=== PATIENT | female | born 1965 | race Caucasian/White ===

== ENCOUNTER 2020-03-17 06:44 | Outpatient (REF) | payer BC, SELFPAY ==
[2020-03-17 12:02] LABS: Alanine Aminotransferase 12 U/L (0-31); Albumin Level 4.3 g/dL (3.5-5.0); Alkaline Phosphatase 62 U/L (39-117); Anion Gap 14 (12-20); Aspartate Amino Transferase 18 U/L (5-31); Bilirubin Total 0.8 mg/dL (0.0-1.0); Blood Urea Nitrogen 8 mg/dL (9-16); Calcium 8.9 mg/dL (8.4-10.2); Carbon Dioxide 26 mmol/L (22-29); Chloride 104 mmol/L (96-108); Cholesterol 242 mg/dL; Estimated Glomerular Filt Rate 59; Glucose Fasting 81 mg/dL (60-99); HDL Cholesterol 62 mg/dL; LDL Cholesterol Calculated 157 mg/dl; Potassium 4.3 mmol/l (3.3-5.1); Sodium 140 mmol/L (135-145); Triglycerides 119 mg/dL
[2020-03-17 12:12] LABS: TSH reflex Free T4 1.94 mIU/mL (0.32-4.0); Vitamin D 25-OH Total 27.6 ng/mL (>30)
== END 2020-03-17 06:45 | disposition home or self-care (01) ==
LOC: HO.HMGCLDS 06:44
PROVIDERS: PCP Nurse Practitioner Family; Visit Provider Nurse Practitioner Family
DX: E78.5 Hyperlipidemia, unspecified (principal); Z13.29 Encounter for screening for other suspected endocrine disorder; Z78.0 Asymptomatic menopausal state
CPT/HCPCS: 80053; 80061; 82306; 84443

== ENCOUNTER 2020-07-25 06:28 | Outpatient (REF) | payer BC, SELFPAY ==
[2020-07-25 11:55] LABS: Cholesterol 178 mg/dL; HDL Cholesterol 63 mg/dL; LDL Cholesterol Calculated 100 mg/dl; Triglycerides 77 mg/dL
== END 2020-07-25 06:29 | disposition home or self-care (01) ==
LOC: HO.HMGCLDS 06:28
PROVIDERS: PCP Nurse Practitioner Family; Visit Provider Nurse Practitioner Family
DX: E78.5 Hyperlipidemia, unspecified (principal)
CPT/HCPCS: 36415; 80061

== ENCOUNTER 2020-09-27 08:36 | Outpatient (REF) | payer BC, SELFPAY ==
--- NOTE | ~2020-09-27 | US_ITS ---
EXAMINATION: US ABDOMEN COMPLETE CLINICAL INFORMATION: Right upper quadrant pain. COMPARISON: Ultrasound bladder 05/28/2017. Ultrasound abdomen 01/30/2012. TECHNIQUE: Real-time imaging of the abdominal viscera. FINDINGS: PANCREAS: Normal. ABDOMINAL AORTA: The proximal, mid, and distal segments are normal in caliber. INFERIOR VENA CAVA: Visualized portions are normal. LIVER: Normal. The liver is normal in size. The liver contour is normal. The liver echotexture is normal. No focal hepatic lesion. There is no intrahepatic biliary duct dilatation seen. GALLBLADDER: Normal. The gallbladder is physiologically distended without evidence of stones, sludge, polyps, wall thickening or pericholecystic fluid. COMMON BILE DUCT: Normal in caliber measuring 0.35 cm in diameter. RIGHT KIDNEY: Normal. No hydronephrosis. No renal calculi or focal parenchymal lesions. The kidney measures 10.7 cm in maximum dimension. LEFT KIDNEY: Normal. No hydronephrosis. No renal calculi or focal parenchymal lesions. The kidney measures 10.5 cm in maximum dimension. SPLEEN: Normal. The spleen measures 9.0 cm in maximum dimension. FREE FLUID: None. US/US abdomen complete IMPRESSION: Normal abdominal ultrasound.
== END 2020-09-27 08:37 | disposition home or self-care (01) ==
LOC: HO.HMGCX 08:36
PROVIDERS: PCP Nurse Practitioner Family; Visit Provider Nurse Practitioner Family
DX: R10.11 Right upper quadrant pain (principal)
CPT/HCPCS: 76700

== ENCOUNTER 2021-09-21 06:46 | Outpatient (REF) | payer BC, SELFPAY ==
[2021-09-21 11:26] LABS: Appearance Urine CLOUDY; Color Urine YELLOW; Glucose Urine UA NEG (NEG); Leukocyte Esterase Urine NEG (NEG); MANUAL DIFF FLAG NO; Nitrite Urine NEG (NEG); Specific Gravity - Urine 1.025 (1.005-1.025); Urine Blood NEG (NEG); Urine Ketones 5 MG/DL (NEG); Urine Protein NEG (NEG-TRACE)
[2021-09-21 11:33] LABS: Basophils Absolute Auto 0.1 X10*3/uL (0.0-0.2); Basophils Percent Auto 1.6 % (0-2); Eosinophils Absolute Auto 0.1 X10*3/uL (0.0-0.4); Eosinophils Percent Auto 1.4 % (0-4); Hematocrit 40.6 % (37.0-47.0); Hemoglobin 13.2 g/dl (12.0-16.0); Imm Gran Abs Auto 0.01 X10*3/uL (0.00-0.03); Imm Gran Pct Auto 0.2 % (0.0-0.4); Lymphocytes Absolute Auto 1.6 X10*3/uL (1.2-4.9); Lymphocytes Percent Auto 37.4 % (20-40); Mean Corpuscular HGB Conc 32.5 g/dl (31.0-35.0); Mean Corpuscular Hemoglobin 29.5 pg (27.0-33.0); Mean Corpuscular Volume 90.6 fL (80.0-98.0); Mean Platelet Volume 10.1 fL (9.4-12.3); Monocytes Absolute Auto 0.5 X10*3/uL (0.1-1.2); Monocytes Percent Auto 10.4 % (2-11); Neutrophils Absolute Auto 2.1 x10*3/uL (2.0-8.3); Platelet Count 335 X10*3/uL (160-400); Red Blood Count 4.48 X10*6/uL (4.20-5.50); Red Cell Distribution Width 12.4 % (11.0-16.0); White Blood Count 4.3 X10*3/uL (4.8-10.8)
[2021-09-21 11:53] LABS: Alanine Aminotransferase 16 U/L (0-31); Albumin Level 4.3 g/dL (3.5-5.0); Alkaline Phosphatase 70 U/L (39-117); Anion Gap 12 (12-20); Aspartate Amino Transferase 20 U/L (5-31); Bilirubin Total 0.9 mg/dL (0.0-1.0); Blood Urea Nitrogen 10 mg/dL (9-16); Calcium 9.5 mg/dL (8.4-10.2); Carbon Dioxide 27 mmol/L (22-29); Chloride 106 mmol/L (96-108); Cholesterol 180 mg/dL; Estimated Glomerular Filt Rate > 60; Glucose Fasting 93 mg/dL (60-99); HDL Cholesterol 64 mg/dL; LDL Cholesterol Calculated 104 mg/dl; Potassium 4.4 mmol/L (3.3-5.1); Sodium 141 mmol/L (135-145); Triglycerides 60 mg/dL
[2021-09-21 12:15] LABS: TSH reflex Free T4 2.03 uIU/mL (0.32-4.0); Vitamin D 25-OH Total 33.6 ng/mL (>30)
== END 2021-09-21 06:47 | disposition home or self-care (01) ==
LOC: HO.HMGCLDS 06:46
PROVIDERS: Visit Provider Nurse Practitioner Family
DX: Z00.00 Encounter for general adult medical examination without abnormal findings (principal); Z78.0 Asymptomatic menopausal state
CPT/HCPCS: 36415; 80053; 80061; 81003; 82306; 84443; 85025

== ENCOUNTER 2021-11-08 07:59 | Outpatient (REF) | payer BC, SELFPAY ==
--- NOTE | ~2021-11-08 | MM_ITS ---
EXAMINATION: BONE DENSITOMETRY CLINICAL INDICATION: Menopause. COMPARISON: None (current study represents initial baseline exam). TECHNIQUE: Using a [employer] DXA System (software version: 13.1) manufactured by [employer], dual-energy x-ray absorptiometry was performed of the lumbar spine and left hip. The images are of good technical quality. Summary results are attached. FINDINGS: AP SPINE L1-L4: BMD 1.075 g/cm2, Z-score -0.2, T-score -0.9, normal. LEFT FEMUR, NECK: BMD 0.921 g/cm2, Z-score 0.1, T-score -0.8, normal. LEFT FEMUR, TOTAL: BMD 0.903 g/cm2, Z-score -0.3, T-score -0.8, normal. IDENTIFIED RISK FACTORS: Menopause. HISTORY OF FRACTURE: None listed. MEDICATIONS: Calcium, vitamin D. MM/XR DEXA axial skeleton IMPRESSION: 1. DIAGNOSIS: Normal bone density based on the lowest T-score value of 0.9 in the lumbar spine applying World Health Organization criteria. 2. 10-YEAR FRACTURE RISK PREDICTION, FRAX: According to the guidelines, FRAX calculation should only be performed on patients in the osteopenia bone density category. Therefore, FRAX was not performed on this patient. 3. Treatment Recommendations: NOF guidelines recommend consideration for treatment in postmenopausal women and men age 50 and older presenting with the following: -A hip or vertebral (clinical or morphometric) fracture. -T-score less than or equal to -2.5 at the femoral neck or spine after appropriate evaluation to exclude secondary causes. -Low bone mass at the hip or spine and a 10-year fracture probability by FRAX of greater than or equal to 3% for hip fracture or greater than or equal to 20% for major osteoporotic fracture based on the [place] adapted WHO algorithm. 4. Other Recommendations: All treatment decisions require clinical judgment and consideration of individual patient factors, including patient preferences, comorbidities, previous drug use, risk factors not captured in the FRAX model (e.g. frailty, falls, vitamin D deficiency, increased bone turnover, interval significant decline in bone density) and possible under or overestimation of fracture risk by FRAX. FUTURE SCAN RECOMMENDATION: People with diagnosed cases of osteoporosis or at high risk for fracture should have regular bone mineral density tests. For patients eligible for Medicare, routine testing is allowed once every 2 years. The testing frequency can be increased to one year for patients who have rapidly progressing disease, those who are receiving or discontinuing medical therapy to restore bone mass, or have additional risk factors.
== END 2021-11-08 08:00 | disposition home or self-care (01) ==
LOC: HO.MAMMO 07:59
PROVIDERS: PCP Nurse Practitioner Family; Visit Provider Nurse Practitioner Family
DX: Z13.820 Encounter for screening for osteoporosis (principal); Z78.0 Asymptomatic menopausal state
CPT/HCPCS: 77080

== ENCOUNTER 2022-05-01 09:39 | Outpatient (REF) | payer BC, SELFPAY ==
--- NOTE | ~2022-05-01 | XR_ITS ---
EXAMINATION: XR LUMBOSACRAL SPINE CLINICAL INFORMATION: Low back pain COMPARISON: None TECHNIQUE: Three views of the lumbosacral spine. FINDINGS: Curvature of the lumbar spine to the left. Bone alignment is otherwise normal. No fracture or dislocation. Multilevel degenerative disc disease and spondylosis greatest from L1-L2 to L3-L4. Lower lumbar spine facet arthritis. XR/XR lumbar spine 2-3V IMPRESSION: Scoliosis and degenerative changes.
[2022-05-01 11:13] LABS: MANUAL DIFF FLAG NO
[2022-05-01 11:22] LABS: Appearance Urine Turbid; Color Urine Dark Yellow; Glucose Urine UA Negative (Negative); Leukocyte Esterase Urine Trace (Negative); Nitrite Urine Negative (Negative); PH 5.5 (5.0-9.0); Specific Gravity - Urine 1.025 (1.005-1.025); UMIC TRIGGER UACC YES; Urine Blood Negative (Negative); Urine Ketones 15 mg/dL (Negative); Urine Protein Trace mg/dL (Neg-Trace)
[2022-05-01 11:26] LABS: Basophils Absolute Auto 0.1 X10*3/uL (0.0-0.2); Eosinophils Absolute Auto 0.1 X10*3/uL (0.0-0.4); Eosinophils Percent Auto 0.8 % (0-4); Hematocrit 42.1 % (37.0-47.0); Hemoglobin 13.7 g/dl (12.0-16.0); Imm Gran Abs Auto 0.02 X10*3/uL (0.00-0.03); Imm Gran Pct Auto 0.2 % (0.0-0.4); Lymphocytes Absolute Auto 1.6 X10*3/uL (1.2-4.9); Lymphocytes Percent Auto 19.2 % (20-40); Mean Corpuscular HGB Conc 32.5 g/dl (31.0-35.0); Mean Corpuscular Hemoglobin 28.8 pg (27.0-33.0); Mean Corpuscular Volume 88.6 fL (80.0-98.0); Mean Platelet Volume 9.8 fL (9.4-12.3); Monocytes Absolute Auto 0.6 X10*3/uL (0.1-1.2); Monocytes Percent Auto 7.1 % (2-11); Neutrophils Percent Auto 71.7 % (45-73); Platelet Count 389 X10*3/uL (160-400); Red Blood Count 4.75 X10*6/uL (4.20-5.50); Red Cell Distribution Width 12.1 % (11.0-16.0); White Blood Count 8.3 X10*3/uL (4.8-10.8)
[2022-05-01 11:37] LABS: Bacteria Urine None Seen (None Seen); Calcium Oxalate Crystals Urine Present; RBC Urine 0-2 /HPF (0-2); Squamous Epithelial Cell Urine 0-2 /HPF (0-2); WBC Urine 0-5 /HPF (0-5)
[2022-05-01 12:28] LABS: Alanine Aminotransferase 16 U/L (0-31); Albumin Level 4.6 g/dL (3.5-5.0); Alkaline Phosphatase 69 U/L (39-117); Anion Gap 14 (12-20); Aspartate Amino Transferase 18 U/L (5-31); Bilirubin Total 0.9 mg/dL (0.0-1.0); Blood Urea Nitrogen 10 mg/dL (9-16); Calcium 9.5 mg/dL (8.4-10.2); Carbon Dioxide 28 mmol/L (22-29); Chloride 102 mmol/L (96-108); Cholesterol 204 mg/dL; Estimated Glomerular Filt Rate > 60; Glucose Fasting 91 mg/dL (60-99); HDL Cholesterol 65 mg/dL; LDL Cholesterol Calculated 124 mg/dl; Potassium 3.9 mmol/L (3.3-5.1); Sodium 140 mmol/L (135-145); TSH reflex Free T4 1.46 uIU/mL (0.32-4.0); Total Protein 7.1 g/dL (6.5-8.0); Triglycerides 77 mg/dL
== END 2022-05-01 09:40 | disposition home or self-care (01) ==
LOC: HO.HMGCX 09:39
PROVIDERS: PCP Nurse Practitioner Family; Visit Provider Nurse Practitioner Family
DX: M54.50 Low back pain, unspecified (principal); E78.5 Hyperlipidemia, unspecified
CPT/HCPCS: 36415; 72100; 80053; 80061; 81001; 84443; 85025

== ENCOUNTER 2022-11-19 07:10 | Outpatient (REF) | payer BC, SELFPAY ==
[2022-11-19 11:26] LABS: MANUAL DIFF FLAG NO
[2022-11-19 12:07] LABS: Basophils Absolute Auto 0.1 X10*3/uL (0.0-0.2); Basophils Percent Auto 1.4 % (0-2); Eosinophils Absolute Auto 0.1 X10*3/uL (0.0-0.4); Eosinophils Percent Auto 1.6 % (0-4); Hematocrit 40.9 % (37.0-47.0); Hemoglobin 13.2 g/dl (12.0-16.0); Imm Gran Abs Auto 0.01 X10*3/uL (0.00-0.03); Imm Gran Pct Auto 0.2 % (0.0-0.4); Lymphocytes Percent Auto 40.3 % (20-40); Mean Corpuscular HGB Conc 32.3 g/dl (31.0-35.0); Mean Corpuscular Hemoglobin 29.3 pg (27.0-33.0); Mean Corpuscular Volume 90.9 fL (80.0-98.0); Monocytes Absolute Auto 0.5 X10*3/uL (0.1-1.2); Monocytes Percent Auto 10.2 % (2-11); Neutrophils Absolute Auto 2.3 x10*3/uL (2.0-8.3); Neutrophils Percent Auto 46.3 % (45-73); Platelet Count 370 X10*3/uL (160-400)
[2022-11-19 12:29] LABS: Appearance Urine Clear; Color Urine Yellow; Glucose Urine UA Negative (Negative); Leukocyte Esterase Urine Trace (Negative); Nitrite Urine Negative (Negative); PH 5.5 (5.0-9.0); UMIC TRIGGER UACC YES; Urine Blood Negative (Negative); Urine Ketones Trace mg/dL (Negative); Urine Protein Negative (Neg-Trace)
[2022-11-19 12:32] LABS: Bacteria Urine None Seen (None Seen); Hyaline Casts Urine 0-2 /LPF (0-2); RBC Urine 0-2 /HPF (0-2); Squamous Epithelial Cell Urine 0-2 /HPF (0-2); WBC Urine 0-5 /HPF (0-5)
[2022-11-19 12:48] LABS: Alanine Aminotransferase 26 U/L (0-31); Albumin Level 4.1 g/dL (3.5-5.0); Alkaline Phosphatase 80 U/L (39-117); Anion Gap 12 (12-20); Aspartate Amino Transferase 31 U/L (5-31); Bilirubin Total 0.7 mg/dL (0.0-1.0); Blood Urea Nitrogen 9 mg/dL (9-16); Carbon Dioxide 27 mmol/L (22-29); Chloride 107 mmol/L (96-108); Cholesterol 209 mg/dL; Estimated Glomerular Filt Rate > 60; Glucose Fasting 93 mg/dL (60-99); HDL Cholesterol 61 mg/dL; LDL Cholesterol Calculated 129 mg/dl; Potassium 4.3 mmol/L (3.3-5.1); Sodium 142 mmol/L (135-145); Total Protein 6.9 g/dL (6.5-8.0); Triglycerides 99 mg/dL
[2022-11-19 12:55] LABS: TSH reflex Free T4 2.74 uIU/mL (0.32-4.0); Vitamin D 25-OH Total 62.6 ng/mL (>30)
== END 2022-11-19 07:11 | disposition home or self-care (01) ==
LOC: HO.HMGCLDS 07:10
PROVIDERS: PCP Nurse Practitioner Family; Visit Provider Nurse Practitioner Family
DX: Z00.00 Encounter for general adult medical examination without abnormal findings (principal); Z78.0 Asymptomatic menopausal state; E78.5 Hyperlipidemia, unspecified; N95.9 Unspecified menopausal and perimenopausal disorder; Z13.29 Encounter for screening for other suspected endocrine disorder
CPT/HCPCS: 36415; 80053; 80061; 81001; 82306; 84443; 85025

== ENCOUNTER 2023-08-24 09:45 | Outpatient (REF) | payer BC, SELFPAY ==
[2023-08-24 09:54] LABS: MANUAL DIFF FLAG NO
[2023-08-24 10:43] LABS: Basophils Absolute Auto 0.1 X10*3/uL (0.0-0.2); Basophils Percent Auto 1.7 % (0-2); Eosinophils Absolute Auto 0.1 X10*3/uL (0.0-0.4); Eosinophils Percent Auto 1.3 % (0-4); Hemoglobin 13.8 g/dl (12.0-16.0); Imm Gran Abs Auto 0.02 X10*3/uL (0.00-0.03); Imm Gran Pct Auto 0.4 % (0.0-0.4); Lymphocytes Absolute Auto 1.7 X10*3/uL (1.2-4.9); Lymphocytes Percent Auto 36.1 % (20-40); Mean Corpuscular HGB Conc 32.9 g/dl (31.0-35.0); Mean Corpuscular Hemoglobin 29.6 pg (27.0-33.0); Mean Corpuscular Volume 89.9 fL (80.0-98.0); Mean Platelet Volume 9.9 fL (9.4-12.3); Monocytes Absolute Auto 0.4 X10*3/uL (0.1-1.2); Monocytes Percent Auto 7.8 % (2-11); Neutrophils Absolute Auto 2.5 x10*3/uL (2.0-8.3); Neutrophils Percent Auto 52.7 % (45-73); Platelet Count 353 X10*3/uL (160-400); Red Blood Count 4.67 X10*6/uL (4.20-5.50); White Blood Count 4.8 X10*3/uL (4.8-10.8)
[2023-08-24 11:47] LABS: Alanine Aminotransferase 15 U/L (0-31); Albumin Level 4.2 g/dL (3.5-5.0); Alkaline Phosphatase 69 U/L (39-117); Anion Gap 10 (12-20); Aspartate Amino Transferase 19 U/L (5-31); Bilirubin Total 0.4 mg/dL (0.0-1.0); Blood Urea Nitrogen 15 mg/dL (9-16); Calcium 9.4 mg/dL (8.4-10.2); Carbon Dioxide 28 mmol/L (22-29); Chloride 109 mmol/L (96-108); Cholesterol 282 mg/dL (<200); Estimated Glomerular Filt Rate > 60; Glucose Fasting 90 mg/dL (60-99); HDL Cholesterol 69 mg/dL (>40); LDL Cholesterol Calculated 199 mg/dL (<100); Sodium 143 mmol/L (135-145); Total Protein 7.2 g/dL (6.5-8.0); Triglycerides 70 mg/dL (<150)
[2023-08-24 12:05] LABS: TSH reflex Free T4 1.34 uIU/mL (0.32-4.0); Vitamin D 25-OH Total 38.2 ng/mL (>30)
== END 2023-08-24 09:46 | disposition home or self-care (01) ==
LOC: HO.LAB 09:45
PROVIDERS: PCP Nurse Practitioner Family; Visit Provider Nurse Practitioner Family
DX: Z00.00 Encounter for general adult medical examination without abnormal findings (principal); E78.5 Hyperlipidemia, unspecified
CPT/HCPCS: 36415; 80053; 80061; 82306; 84443; 85025

== ENCOUNTER 2023-08-27 07:28 | Outpatient (AMB) | payer BC, SELFPAY ==
--- NOTE | 2023-08-27 07:30 | A.OFFPC_ITS ---
Vital Signs 08/27/23 07:34 Height 5 ft 7 in Weight 167 lb BMI 26.2 BP 106/70 Blood Pressure Location Rt brachial Position Sitting Pulse 60 Pulse Source Pulse Oximeter Pulse Oximetry (%) 97 Oxygen Delivery Method Room Air Intake Visit Reasons: PE Intake Note: Pt is here today for her PE:last mammogram 12/28/21, papsmear 06/25/23, colonoscopy 11/03/19 Allergies No Known Allergies Allergy (Verified 08/27/23 07:56) Medication List - Last Reconciled 08/27/23 by ALEISHA Hall atorvastatin 20 mg PO BEDTIME Tobacco use date assessed: 08/27/23 Dental Screening Dental Screen Date: 08/27/23 Did you have a dental visit in the last 12 months?: Yes Did you have a dental problem in the last 6 months where you did not have access to dental care?: Yes Was dental information given to patient?: Patient has dentist HPI PE HPI Details Pt is here for a PE. Labs were already performed. Colon screen is up to date. Mammo is up to date. Has a recruiter specialist. Dyslipidemia: Pt was off her atorvastatin but is back on 10mg. Will increase this to 20mg and repeat labs in 2 months. [facility] Medical History Lumbar degenerative disc disease Post-menopause Hyperlipidemia Abnormal mammogram Bursitis Right hip pain Tubular adenoma Menopause Dyslipidemia Palpitations Surgical History History of laparoscopy Family History Father No problems noted. Mother Afib HTN (hypertension) Brother No problems noted. Son No problems noted. Son No problems noted. Maternal Grandfather Stomach cancer Stroke Paternal Grandmother Stroke Ovarian cancer Paternal Uncle CVD (cardiovascular disease) Social History Housing: House Alcohol intake: current Alcohol intake frequency: holidays/special occasions only Patient Tobacco Use Status: Never used Tobacco e-Cigarette/Vaping Use: Never Used Second Hand Smoke Exposure: No service: No Current occupational status: employed Cognitive needs: No Hearing needs: No Vision needs: No Questionnaire Thrive Questionnaire Date Thrive assessed: 08/22/22 AUDIT C Alcohol Use Questionnaire (AUDIT-C) 1. How often do you have a drink containing alcohol?: Monthly or less 2. How many drinks containing alcohol do you have on a typical day when you are drinking?: 1 or 2 3. How often do you have six or more drinks on one occasion?: Never Total Score: 1 MARIALUISA-7 AMB Questionnaire MARIALUISA-7 Date MARIALUISA - 7 assessed: 08/22/22 Source: Developed by Drs. Nik Hemls, Yanet Ibarra, Titi Ocampo and colleagues, with an educational luly from [employer]. Review of Systems Const Denies chills and Denies fever(s) Eyes Denies blurry vision ENT Denies vertigo, Denies dizziness and Denies sore throat Card Denies chest pain at rest, Denies chest pain with activity, Denies diaphoresis, Denies dyspnea and Denies dyspnea on exertion Resp Denies cough, Denies dyspnea, Denies dyspnea on exertion and Denies wheezing GI Denies abdominal pain, Denies melena, Denies hematochezia, Denies constipation, Denies diarrhea and Denies loose stools Denies hematuria Musc Denies numbness and Denies tingling Skin/Breast Denies lesions Neuro Denies vertigo, Denies dizziness, Denies numbness and Denies tingling Psych Denies anxiety, Denies depression, Denies homicidal ideation, Denies suicidal ideation and Denies other (substance abuse) Aller/Immun Denies wheezing Physical exam (Primary Care) Vital Signs: Last Vital Signs Pulse 60 08/27/23 07:34 BP 106/70 08/27/23 07:34 Pulse Ox 97 08/27/23 07:34 Oxygen Delivery Method Room Air 08/27/23 07:34 BMI result Body Mass Index 26.2 Tobacco/Smoking Status: Tobacco use Status Tobacco use date assessed 08/27/23 08/27/23 07:35 Patient Tobacco Use Status Never used Tobacco 08/27/23 07:32 e-Cigarette/Vaping Use Never Used 08/27/23 07:32 Thrive Assessment: Date of Thrive Assessment Date Thrive assessed 08/22/22 08/27/23 07:32 Const General: cooperative Nutritional Appearance: well nourished Orientation/consciousness: patient oriented x3 HENMT Head: Yes normal to inspection, Yes normocephalic and Yes atraumatic Ears: TM's normal bilaterally Eyes General: appearance normal, both eyes and all related structures Alignment and Position: alignment normal and position normal Neck Neck: Yes normal visual inspection and Yes no lymphadenopathy Thyroid: Thyroid normal Resp Effort & Inspection: normal respiratory effort Auscultation: clear to auscultation bilaterally Cardio Rate: regular rate Rhythm: regular rhythm Heart sounds: S1 normal heart sound present, S2 normal heart sound present and no murmurs GI Palpation (GI): Soft to palpation and nontender Auscultation: normal bowel sounds Skin Rashes: no rashes Neuro General: patient oriented x3, moves all extremities, no focal motor deficits and deep tendon reflexes 2+ bilaterally Romberg Test: Negative Psych Appearance: grossly normal Mental Status: mental status grossly normal Speech and movement: Normal speech and movement present Affect: normal affect Attitude: cooperative Thought process: Normal thought process present Thought content: Normal thought content present Insight: Good insight present (Psych) Judgement: Good judgement present (Psych) Assessment and Plan Assessment & Plan (1) Physical exam: Code(s): Z00.00 - Encounter for general adult medical examination without abnormal findings Plan: Labs already performed (2) Hyperlipidemia: Code(s): E78.5 - Hyperlipidemia, unspecified Plan: Increasing atorvastatin from 10mg to 20mg, repeat labs in 2 months Plan The patient agreed to the use of a medical care manager for this encounter. Scribed for ALEISHA Chadwick by Lindsay Daugherty medical care manager, on 08/27/2023 at 07:45 EST. Orders: Orders Comprehensive [place]. Panel Fast 2 Months E78.5 - Hyperlipidemia, unspecified Lipid Panel 2 Months E78.5 - Hyperlipidemia, unspecified Medications: Changed From atorvastatin 10 mg PO BEDTIME 90 tabs 3RF To atorvastatin 20 mg PO BEDTIME 90 tabs 3RF Coding Level of Care Code Est Pt Prev Care 40-64y(31640) Diagnoses Physical exam Z00.00 Hyperlipidemia E78.5
[2023-08-27 07:34] VITALS: BP 106/70; PULSE 60; O2SAT 97; BMI 26.2
== END 2023-08-27 07:53 | disposition home or self-care (01) ==
PROVIDERS: Visit Provider Nurse Practitioner Family
DX: Z00.00 Encounter for general adult medical examination without abnormal findings (principal); E78.5 Hyperlipidemia, unspecified
CPT/HCPCS: 99396

== ENCOUNTER 2023-09-18 11:27 | Outpatient (AMB) | payer BC, SELFPAY ==
[2023-09-18 11:28] VITALS: BP 102/68; PULSE 94; TEMP 36.7; O2SAT 98; BMI 25.7
--- NOTE | 2023-09-18 11:28 | MHC.OFFWIV ---
Intake Vital Signs 09/18/23 11:28 Height 5 ft 7 in Weight 164 lb BMI 25.7 BP 102/68 Blood Pressure Location Rt brachial Position Sitting Pulse 94 Pulse Source Pulse Oximeter Temp 98.1 F Temp Source Oral Pulse Oximetry (%) 98 Oxygen Delivery Method Room Air Intake Visit Reasons: EP viral infection? cough Intake Note: pt is here for c/o cough really bad at night, loss of taste and been ongoing for a few days and would like a work note Patient Tobacco Use Status: Never used Tobacco Allergies No Known Allergies Allergy (Verified 09/18/23 11:45) Medication List - Last Reconciled 09/18/23 by ANTONINA Bro atorvastatin 20 mg PO BEDTIME prednisone 20 mg PO BID Do you need a note to return to daycare/school/sports/work: Yes HPI HPI Comments History of Present Illness Details Patient is a 57-year-old female in today for a sick visit. She reports symptoms of cough, chest congestion, sore throat, x4 days. She reports that the cough is worse at night. Denies fever chills, denies chest pain or shortness of breath, denies nausea vomiting or diarrhea. Patient has utilized tea and honey with mild effect. 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 Will obtain URI swab [facility] Medical History Lumbar degenerative disc disease Post-menopause Hyperlipidemia Abnormal mammogram Bursitis Right hip pain Tubular adenoma Menopause Dyslipidemia Palpitations Surgical History History of laparoscopy Family History Father No problems noted. Mother Afib HTN (hypertension) Brother No problems noted. Son No problems noted. Son No problems noted. Maternal Grandfather Stomach cancer Stroke Paternal Grandmother Stroke Ovarian cancer Paternal Uncle CVD (cardiovascular disease) Social History Housing: House Alcohol intake: current Alcohol intake frequency: holidays/special occasions only Patient Tobacco Use Status: Never used Tobacco e-Cigarette/Vaping Use: Never Used Second Hand Smoke Exposure: No service: No Current occupational status: employed Cognitive needs: No Hearing needs: No Vision needs: No Review of Systems Const All systems reviewed & are unremarkable except as noted in HPI and below Physical Exam Vital Signs: Last Vital Signs Temp 98.1 F 09/18/23 11:28 Pulse 94 09/18/23 11:28 BP 102/68 09/18/23 11:28 Pulse Ox 98 09/18/23 11:28 Oxygen Delivery Method Room Air 09/18/23 11:28 BMI result Body Mass Index 25.7 Const Other: Appearance: Alert.? Oriented X3.? No acute distress.? Head: Normocephalic, Eyes: Pupils equal, round and reactive to light.?Sclera white. ENT: Pharynx erythema, +cobblestoned. TM intact and pearly cordova. ? Neck: Normal inspection.? Neck supple.?Full ROM. CVS: Normal heart rate and rhythm.? Pulses normal.? Respiratory: No respiratory distress.? Breath sounds normal.? Neuro: Oriented X 3.? Assessment & Plan Assessment & Plan (1) Upper respiratory infection: Comment: patient likely has URI. Will call with results in office swab patient has been educated that she utilize [id number] medicine, as well as the need to stay hydrated and rest. she will be given prednisone. She has been educated the side effects of the medication. Code(s): J06.9 - Acute upper respiratory infection, unspecified Qualifiers: URI type: unspecified URI Qualified Code(s): J06.9 - Acute upper respiratory infection, unspecified Plan: Take your medications as prescribed. If you were prescribed antibiotics today, it is important that you take your medication to their entirety, do not skip any doses, do not finish them early. Follow-up with your primary care provider this week. Return to the emergency department with new or worsening symptoms. Such as fevers, chills, chest pain, shortness of breath, nausea, vomiting, dizziness, headache, vision changes, lethargy In case of emergency call 911 Plan Follow up with PCP. Orders: Orders SARS-CoV2/FLU/RSV Today J06.9 - Acute upper respiratory infection, unspecified Medications: New prednisone 20 mg PO BID 10 tabs 0RF Coding Level of Care Code Est Pt Level 3 (48429) Diagnoses Upper respiratory tract infection, unspecified type J06.9 URI type: unspecified URI Time Spent (min) 24
== END 2023-09-18 12:01 | disposition home or self-care (01) ==
PROVIDERS: PCP Nurse Practitioner Family; Visit Provider Nurse Practitioner Primary Care
DX: J06.9 Acute upper respiratory infection, unspecified (principal)
CPT/HCPCS: 99213

== ENCOUNTER 2023-09-18 13:19 | Outpatient (REF) | payer BC, SELFPAY ==
[2023-09-18 14:32] LABS: Influenza A PCR NEGATIVE (Negative); Influenza B PCR NEGATIVE (Negative); Resp Syncy Virus RNA Qual PCR NEGATIVE (Negative); SARS COV2 PCR INHOUSE NEGATIVE (Negative)
== END 2023-09-18 13:20 | disposition home or self-care (01) ==
LOC: HO.LNP 13:19
PROVIDERS: Visit Provider Nurse Practitioner Primary Care
DX: J06.9 Acute upper respiratory infection, unspecified (principal)
CPT/HCPCS: 0241U

== ENCOUNTER 2024-09-21 07:55 | Outpatient (AMB) | payer BC, SELFPAY ==
[2024-09-21 08:03] VITALS: BP 110/72; PULSE 69; O2SAT 97; BMI 25.5
--- NOTE | 2024-09-21 08:03 | A.OFFPC_ITS ---
Vital Signs 09/21/24 08:03 Height 5 ft 7 in Weight 163 lb BMI 25.5 BP 110/72 Blood Pressure Location Lt brachial Position Sitting Pulse 69 Pulse Source Pulse Oximeter Pulse Oximetry (%) 97 Oxygen Delivery Method Room Air Intake Visit Reasons: PE Laundry Bag Punch Operator Required: No Accompanied by: Self / Same As Patient Allergies No Known Allergies Allergy (Verified 09/21/24 08:04) Tobacco use date assessed: 09/21/24 Dental Screening Dental Screen Date: 09/21/24 Did you have a dental visit in the last 12 months?: Yes Did you have a dental problem in the last 6 months where you did not have access to dental care?: No Was dental information given to patient?: Patient has dentist HPI PE HPI Details History of Present Illness The patient is a 58-year-old female presenting for a physical examination and wellness visit. She is due for a mammogram by December, and I will place the order for this. Though she has a marine mammal trainer, she is currently awaiting an appointment and will contact me if there continue to be challenges accessing care. She follows with a fire crew specialist regularly for her fair skin, freckles, Hx of skin Ca. She denies any acute concerns such as chest pain, shortness of breath, or gastrointestinal changes. Her colon cancer screening is current; however, she requires a referral for her next routine check next month. Laboratory orders have been entered, as she admitted to not adhering to her statin medication regimen for hyperlipidemia. Health Maintenance - Mammogram: Due in December; order placed . - Colon Cancer Screening: Up to date, pr heduled follow-up next month. - Pap Smear: Pending due to limited acce ss to [employer], potential follow-up with primary care if necessary. - Dermatology follow-up: Regular visits for fair skin and freckles. - Statin for Hyperlipidemia: Encouraged adherence to medication regimen. Social History - Dermatology visits: Regular due to ski n type. - Medication: Non-compliance with statin therapy for hyperlipidemia. Review of Systems - Cardiovascular: Denies chest pain. - Respiratory: Denies shortness of breat h. - Gastrointestinal: Denies abdominal alvina n, constipation, diarrhea, blood in stool. - Psychiatric: Denies suicidal or homici maria alejandra ideation. Physical Exam General: Cooperative, healthy appearing, comfortable, no acute distress and well developed Orientation: Patient oriented x3 Limitations: No limitations Head: Normal to inspection Ears: Hearing grossly normal bilaterally Nose: Normal external nose present Face and sinus: Normal facial exam Eyes: Appearance normal, both eyes and all related structures Neck: Normal visual inspection and Yes full ROM Respiratory: Normal respiratory effort and able to speak in complete sentences. Clear to auscultation bilaterally Cardiovascular: Regular rate and rhythm. Normal S1 and S2 GI: Normal to inspection. Soft to palpation and nontender Skin: Fair skinned with freckles, no rashes or lesions noted Neuro: Patient oriented x3 Extremities: Normal to inspection Results Plan The patient is advised to resume taking her statin medication consistently to manage her hyperlipidemia, as non-adherence was noted. A mammogram order is placed to ensure it occurs in December as recommended. For her Pap smear, she is currently awaiting an appointment with her marine mammal trainer, but I provided an option to return for follow-up care if needed. I initiated a referral for her ongoing colon cancer screening follow-up, planned for next month, as it remains essential for her comprehensive health maintenance. Discussion Notes I discussed with the patient the importance of adhering to her prescribed medication, particularly the statin, to effectively manage her hyperlipidemia and reduce cardiovascular risks. We also reviewed the schedule for her mammogram and Pap smear, ensuring that care continuity is maintained despite any accessibility issues with her marine mammal trainer. The significance of her regular dermatology appointments was addressed as well. I provided anticipatory guidance about maintaining up-to-date screenings, emphasizing the role of regular mammograms and colon screenings in her overall health strategy. Patient Instructions - Continue regular visits with the radha tologist. - Take the statin medication daily as pr escribed. - Schedule and complete the mammogram in December. - Contact for a Pap smear follow-up if u kyriele to access the marine mammal trainer. - Attend colon cancer screening appointm ent next month. - Report any new symptoms or concerns pr omptly. [facility] Medical History (Updated 09/21/24 @ 08:27 by ALEISHA Hall) Skin cancer Lumbar degenerative disc disease Post-menopause Hyperlipidemia Abnormal mammogram Bursitis Right hip pain Tubular adenoma Menopause Dyslipidemia Palpitations Surgical History History of laparoscopy Family History Father No problems noted. Mother Afib HTN (hypertension) Brother No problems noted. Son No problems noted. Son No problems noted. Maternal Grandfather Stomach cancer Stroke Paternal Grandmother Stroke Ovarian cancer Paternal Uncle CVD (cardiovascular disease) Social History Housing: House Alcohol intake: current Alcohol intake frequency: holidays/special occasions only Patient Tobacco Use Status: Never used Tobacco e-Cigarette/Vaping Use: Never Used Second Hand Smoke Exposure: No service: No Current occupational status: employed Cognitive needs: No Hearing needs: No Vision needs: No Questionnaire PHQ-9 Over the last 2 weeks, how often have you been bothered by any of the following problems? 1. Little interest or pleasure in doing things: not at all 2. Feeling down, depressed, or hopeless: not at all 3. Trouble falling or staying asleep, or sleeping too much: not at all 4. Feeling tired or having little energy: not at all 5. Poor appetite or overeating: not at all 6. Feeling bad about yourself - or that you are a failure or have let yourself or your family down: not at all 7. Trouble concentrating on things, such as reading the newspaper or watching television: not at all 8. Moving or speaking so slowly that other people could have noticed. Or the opposite - being so fidgety or restless that you have been moving around a lot more than usual: not at all 9. Thoughts that you would be better off or of hurting yourself in some way: not at all Total score: 0 Depression Screening Interpretation: Negative Depression Screening Done: Yes 02608 - PHQ-9 Billing: Yes Source: Developed by Drs. Nik Helms, Yanet Ibarra, Titi Ocampo and colleagues, with an educational luly from [employer]. Thrive Questionnaire Date Thrive assessed: 09/21/24 I am a: Patient What is your living situation today?: I have a steady place to live Within the past 12 months, did the food you bought not last and you didn't have the money to get more?: Never true Within the past 12 months, did you worry whether your food would run out before you got money to buy more?: Never true Do you have trouble paying for medicines?: No Do you have trouble getting transportation to medical appointments?: No Do you have trouble paying your heating and electricity bill?: No Do you have trouble taking care of your child, family member or friend?: No Do you have trouble with day-to-day activities such as bathing, preparing meals, shopping, managing finances, etc.?: No Are you currently unemployed and looking for a job?: No Are you interested in more education?: No Please select the resources that you would like help with: Care for elder or disabled Currently or been in a relationship where the following occur: No concerns re ported THRIVE Score: 0 AUDIT C Alcohol Use Questionnaire (AUDIT-C) 1. How often do you have a drink containing alcohol?: 2-4 times a month 2. How many drinks containing alcohol do you have on a typical day when you are drinking?: 3 or 4 3. How often do you have six or more drinks on one occasion?: Less than monthly Total Score: 4 Score Reviewed/Action Taken: Yes MARIALUISA-7 AMB Questionnaire MARIALUISA-7 Date MARIALUISA - 7 assessed: 09/21/24 Feeling nervous, anxious, or on edge: 0 = Not at all Not being able to stop or control worryin = Not at all Worrying too much about different things: 0 = Not at all Trouble relaxin = Not at all Being so restless that it is hard to sit still: 0 = Not at all Becoming easily annoyed or irritable: 0 = Not at all Feeling afraid as if something awful might happen: 0 = Not at all Total MARIALUISA-7 score (0-4 normal; 5-9 mild; 10-14 moderate; 15-21 severe): 0 Source: Developed by Drs. Nik Helms, Yanet Ibarra, Titi Ocampo and colleagues, with an educational luly from [employer]. MARIALUISA-7 Assessment Billing MARIALUISA-7 Assessment Tool: MARIALUISA-7 Assessment 45718 Physical exam (Primary Care) Vital Signs: Last Vital Signs Pulse 69 09/21/24 08:03 BP 110/72 09/21/24 08:03 Pulse Ox 97 09/21/24 08:03 Oxygen Delivery Method Room Air 09/21/24 08:03 BMI result Body Mass Index 25.5 Tobacco/Smoking Status: Tobacco use Status Tobacco use date assessed 09/21/24 09/21/24 08:08 Patient Tobacco Use Status Never used Tobacco 09/21/24 08:08 e-Cigarette/Vaping Use Never Used 09/21/24 08:08 PHQ-9: PHQ-9 Score PHQ-9: Total score 0 09/21/24 08:08 Depression Screening Interpretation: Negative Thrive Assessment: Date of Thrive Assessment Date Thrive assessed 09/21/24 09/21/24 08:08 Currently or been in a relationship where the following occur: No concerns reported Coding Level of Care Code Est Pt Prev Care 40-64y(58039) Diagnoses Physical exam Z00.00 Post-menopause Z78.0 Screening for colon cancer Z12.11 Additional Codes MARIALUISA-7 Assessment Billing - MARIALUISA-7 Assessment Tool: MARIALUISA-7 Assessment 76177 ([id number]) PHQ-9 - 49685 - PHQ-9 Billing: Yes ([id number]) Assessment & Plan Assessment & Plan (1) Physical exam: Code(s): Z00.00 - Encounter for general adult medical examination without abnormal findings Category: Medical (2) Post-menopause: Code(s): Z78.0 - Asymptomatic menopausal state Category: Medical (3) Screening for colon cancer: Code(s): Z12.11 - Encounter for screening for malignant neoplasm of colon Category: Medical Plan . Orders: Orders Complete Blood Count Auto Diff Today Z00.00 - Encounter for general adult medical examination without abnormal findings Comprehensive [place]. Panel Fast Today Z00.00 - Encounter for general adult medical examination without abnormal findings TSH reflex Free T4 Today Z00.00 - Encounter for general adult medical examination without abnormal findings UA CC w/rflx Micro + Cult Today Z00.00 - Encounter for general adult medical examination without abnormal findings Lipid Panel Today Z00.00 - Encounter for general adult medical examination without abnormal findings Vitamin D 25-OH Total Today Z00.00 - Encounter for general adult medical examination without abnormal findings, Z78.0 - Asymptomatic menopausal state MM screening mammo BI 3 Months Z12.31 - Encounter for screening mammogram for malignant neoplasm of breast Referrals Gastroenterology Referral Z12.11 - Encounter for screening for malignant neoplasm of colon
== END 2024-09-21 08:28 | disposition home or self-care (01) ==
LOC: HO.HMCC 07:55
PROVIDERS: PCP Nurse Practitioner Family; Visit Provider Nurse Practitioner Family
DX: Z00.00 Encounter for general adult medical examination without abnormal findings (principal); Z78.0 Asymptomatic menopausal state; Z12.11 Encounter for screening for malignant neoplasm of colon

== ENCOUNTER → 2024-09-21 07:55 | Outpatient (BNVA) | payer BC, SELFPAY | PROVIDERS: PCP Nurse Practitioner Family; Visit Provider Nurse Practitioner Family | DX: Z00.00 Encounter for general adult medical examination without abnormal findings (principal); Z85.828 Personal history of other malignant neoplasm of skin; Z78.0 Asymptomatic menopausal state | CPT/HCPCS: 96127 ==

== ENCOUNTER 2024-10-26 08:28 | Outpatient (REF) | payer BC, SELFPAY ==
[2024-10-26 08:48] LABS: MANUAL DIFF FLAG NO
[2024-10-26 09:06] LABS: Basophils Absolute Auto 0.1 X10*3/uL (0.0-0.2); Basophils Percent Auto 1.5 % (0-2); Eosinophils Absolute Auto 0.1 X10*3/uL (0.0-0.4); Eosinophils Percent Auto 2.1 % (0-4); Hematocrit 39.4 % (37.0-47.0); Hemoglobin 13.2 g/dl (12.0-16.0); Imm Gran Abs Auto 0.01 X10*3/uL (0.00-0.03); Imm Gran Pct Auto 0.2 % (0.0-0.4); Lymphocytes Percent Auto 42.3 % (20-40); Mean Corpuscular HGB Conc 33.5 g/dl (31.0-35.0); Mean Corpuscular Hemoglobin 29.3 pg (27.0-33.0); Mean Corpuscular Volume 87.4 fL (80.0-98.0); Mean Platelet Volume 9.3 fL (9.4-12.3); Monocytes Absolute Auto 0.4 X10*3/uL (0.1-1.2); Neutrophils Absolute Auto 2.2 x10*3/uL (2.0-8.3); Neutrophils Percent Auto 44.9 % (45-73); Platelet Count 342 X10*3/uL (160-400); Red Blood Count 4.51 X10*6/uL (4.20-5.50); Red Cell Distribution Width 12.2 % (11.0-16.0); White Blood Count 4.8 X10*3/uL (4.8-10.8)
[2024-10-26 09:22] LABS: Appearance Urine Cloudy; Color Urine Yellow; Glucose Urine UA Negative (Negative); Leukocyte Esterase Urine Negative (Negative); Nitrite Urine Negative (Negative); Specific Gravity - Urine 1.015 (1.005-1.025); Urine Blood Negative (Negative); Urine Ketones Negative (Negative); Urine Protein Negative (Neg-Trace)
[2024-10-26 09:45] LABS: Alanine Aminotransferase 17 U/L (0-31); Albumin Level 4.5 g/dL (3.5-5.0); Alkaline Phosphatase 66 U/L (39-117); Anion Gap 10 (12-20); Aspartate Amino Transferase 23 U/L (5-31); Bilirubin Total 0.7 mg/dL (0.0-1.0); Blood Urea Nitrogen 8 mg/dL (9-16); Calcium 9.2 mg/dL (8.4-10.2); Carbon Dioxide 27 mmol/L (22-29); Chloride 109 mmol/L (96-108); Cholesterol 172 mg/dL (<200); Estimated Glomerular Filt Rate > 60; Glucose Fasting 96 mg/dL (60-99); HDL Cholesterol 58 mg/dL (>40); LDL Cholesterol Calculated 93 mg/dL (<100); Sodium 142 mmol/L (135-145); Total Protein 7.1 g/dL (6.5-8.0); Triglycerides 105 mg/dL (<150)
[2024-10-26 09:55] LABS: TSH reflex Free T4 2.51 uIU/mL (0.32-4.0); Vitamin D 25-OH Total 62.6 ng/mL (>30)
== END 2024-10-26 08:29 | disposition home or self-care (01) ==
LOC: HO.LAB 08:28
PROVIDERS: PCP Nurse Practitioner Family; Visit Provider Nurse Practitioner Family
DX: Z00.00 Encounter for general adult medical examination without abnormal findings (principal); E78.5 Hyperlipidemia, unspecified; Z78.0 Asymptomatic menopausal state
CPT/HCPCS: 36415; 80053; 80061; 81003; 82306; 84443; 85025

== ENCOUNTER 2025-01-27 15:37 | Outpatient (AMB) | payer BC, SELFPAY ==
--- NOTE | 2025-01-27 15:43 | A.OFFVIS_ITS ---
Vital Signs 01/27/25 15:44 Height 5 ft 7 in Weight 163 lb BMI 25.5 BP 116/70 Blood Pressure Location Lt brachial Position Sitting Pulse 64 Pulse Oximetry (%) 96 Oxygen Delivery Method Room Air Intake Visit Reasons: [place] Screening Intake Note: Patient new consult fot pre Colonoscopy screening. Patient denies any GI issues. Weaving Machine Operator Required: No Accompanied by: Self / Same As Patient Allergies No Known Allergies Allergy (Verified 01/27/25 15:43) Medication List - Last Reconciled 01/27/25 by Guerda Blankenship CNP atorvastatin 20 mg PO BEDTIME HPI HPI [place] Screening: Details: Patient is a 59-year-old female with PMH of dyslipidemia. Sherie presents for a pre-colonoscopy screening evaluation. history includes prior benign polyps and diverticulosis on previous colonoscopies (2015 and 2019), with one pre-cancerous polyp removed in 2015. She reports daily bowel movements without diarrhea or constipation. There is no visible blood in stools, though she occasionally notes scant blood on the toilet paper, which she attributes to a recurrent anal fissure or irritation, particularly after increased straining or certain foods (e.g., cheese). Denies c hanges in stool caliber, weight loss, or appetite changes. Relevant comorbidities include hyperlipidemia, currently managed with atorvastatin. No other significant systemic symptoms or ongoing relevant treatments. Patient denies: fever/chills, n/v, appetite changes, pyrosis, regurgitation,dysphasia, unintentional wt loss or ab pain. Social hx: -Social ETOH use , ~every three weeks, drinks with social events/dinner -denies recreational drug use -non-smoker - family hx as below -denies significant cardiopulmonary history -tolerated anesthesia in the past without difficulty. PFSH Medical History (Updated 01/27/25 @ 17:16 by Guerda Blankenship CNP) Perianal irritation Skin cancer Lumbar degenerative disc disease Post-menopause Hyperlipidemia Abnormal mammogram Bursitis Right hip pain Tubular adenoma Menopause Dyslipidemia Palpitations Surgical History (Updated 01/27/25 @ 15:50 by Ana Badillo) Hx of tonsillectomy History of laparoscopy Family History (Updated 01/27/25 @ 16:28 by Guerda Blankenship CNP) Father Disease of colon Mother Afib HTN (hypertension) Brother No problems noted. Son No problems noted. Son No problems noted. Maternal Grandfather Stomach cancer Stroke Paternal Grandmother Stroke Ovarian cancer Paternal Uncle CVD (cardiovascular disease) Social History Housing: House Alcohol intake: current Alcohol intake frequency: holidays/special occasions only Patient Tobacco Use Status: Never used Tobacco e-Cigarette/Vaping Use: Never Used Second Hand Smoke Exposure: No service: No Current occupational status: employed Cognitive needs: No Hearing needs: No Vision needs: No Review of Systems Const Reports as per HPI ENT Reports as per HPI Card Reports as per HPI Resp Reports as per HPI GI Reports as per HPI Reports as per HPI Physical Exam Vital Signs: Last Vital Signs Pulse 64 01/27/25 15:44 BP 116/70 01/27/25 15:44 Pulse Ox 96 01/27/25 15:44 Oxygen Delivery Method Room Air 01/27/25 15:44 BMI result Body Mass Index 25.5 Const General: healthy appearing, no acute distress and well developed Nutritional Appearance: average body habitus Orientation/consciousness: patient oriented x3 HEENT Head: Yes normal to inspection, Yes normocephalic and Yes atraumatic Face and sinus: Yes normal facial exam Eyes General: appearance normal, both eyes and all related structures Neck Neck: Yes normal visual inspection Resp Effort & Inspection: normal respiratory effort, able to speak in complete sentences, no tracheal deviation and symmetric chest movement Cardio Jugular venous distension: no JVD GI Other: Perianal- localized hypopigmentation suggestive of chronic irritation or possible lichen simplex chronicus; no active bleeding Rectal Exam - Female: normal sphincter tone, No External hemorrhoid(s) present, No Internal hemorrhoid(s) present, No Rectal prolapse, No fecal impaction, No Lesions present (GI), No hemorrhoids, No Laceration(s) present (GI), No mass, No tenderness and other Neuro General: patient oriented x3 Gait exam (Neuro): Normal gait present Psych Appearance: grossly normal Mental Status: mental status grossly normal Speech and movement: Normal speech and movement present Affect: normal affect Attitude: cooperative Thought process: Normal thought process present Thought content: Normal thought content present Insight: Good insight present (Psych) Judgement: Good judgement present (Psych) Assessment & Plan Assessment & Plan (1) Screening for colon cancer: Comment: 11/03/19 colonoscopy ( Dr. Bowden) Complete with good prep good-hyperplastic polyp (rectum), diverticulosis. 12/02/2015 colonoscopy ( Dr. Maguire ) complete with good prep- TA (rectum), diverticulosis of the sigmoid Code(s): Z12.11 - Encounter for screening for malignant neoplasm of colon Category: Medical Plan: Polyp surveillance colonoscopy. Medications: -prescriptions for laxative tablets and MiraLax sent to pharmacy; instructions for Gatorade purchase and clear liquid diet given. Patient educated on scheduling process, procedure preparation, including avoiding certain foods and ensuring clear liquid intake Advised on necessity for ride post-procedure due to sedation. (2) Perianal irritation: Code(s): L29.0 - Pruritus ani Category: Medical Plan: Hx of intermittent perianal bleeding with discomfort, noted hypopigmentation/possible lichen, fissure not visualized Additional Testing: - None indicated at this time Medication Management: - Topical steroid cream (can be applied to perianal area PRN for irritation) Lifestyle Recommendations: - Minimize irritants (limit use of wet wipes, avoid harsh toilet paper) - Manage constipation/straining: dietary fiber, stool softeners PRN Follow-Up: - As needed for persistent sx; reassess if symptoms worsen or do not respond to conservative Plan Follow-up after colonoscopy or sooner as needed Time: I spent a total of 30 minutes on the date of encounter which includes: Preparing to see the patient (reviewed previous documentation, test results and medical history) Performing a medically appropriate exam and/or evaluation Ordering medications, tests, and procedures Documenting clinical information in the health record Orders: Referrals GI Procedure Notification D12.6 - Benign neoplasm of colon, unspecified, Z12.11 - Encounter for screening for malignant neoplasm of colon Medications: New bisacodyl Take per colonoscopy instructions 5 mg PO ONCE 4 tabs 0RF polyethylene glycol 3350 (Miralax) per colonoscopy prep instructions 238 grams PO ONCE 238 grams 0RF Coding Level of Care Code New Pt New Pt Level 3 (51519) Patient Type New Diagnoses Screening for colon cancer Z12.11 Perianal irritation L29.0
[2025-01-27 15:44] VITALS: BP 116/70; PULSE 64; O2SAT 96; BMI 25.5
--- OUTSIDE RECORDS SUMMARY | 2025-01-27 17:53 | XMS_ITS | Clinical Summary ---
Author Organization [facility] Address [address] [place] [address] Care Team Providers Care Branch Controller Name Role Phone Community, Pcp Primary Care Provider Unavailabl e Allergies No known active allergies Medications Medication Sig Dispensed Refills Start Date End Date Status Multiple Vitamin (DAILY VITAMINS OR) Take by mouth. 0 Active Active Problems Problem Noted Date Mammographic microcalcification 01/01/20 19 Social History Tobacco Use Types Packs/Day Years Used Date Smoking Tobacco: Never Smokeless Tobacco: Never Sex Assigned at Date Recorded Not on file Last Filed Vital Signs Vital Sign Reading Time Taken Comments Blood Pressure 126/76 12/31/2018 10:37 AM EDT Pulse 61 12/31/2018 10:37 AM EDT Temperature 36.6 C (97.8 F) 12/31/2018 10:37 AM EDT Respiratory Rate - - Oxygen Saturation - - Inhaled Oxygen Concentration - - Weight 68.5 kg (151 lb) 12/31/2018 10:37 AM EDT Height 170.2 cm (5' 7 ) 12/31/2018 10:37 AM EDT Body Mass Index 23.65 12/31/2018 10:37 AM EDT Plan of Treatment Health Maintenance Due Date Last Done Comments Covid-19 Vaccine (#1) 04/28/1967 HEPATITIS C SCREENING 1984 DTAP/TDAP/TD (1 - Tdap) 1985 CHOLESTEROL SCREENING 1986 CERVICAL CANCER SCREENING 10/28/1987 BASELINE HEALTH EXAM 40-64 2006 MAMMOGRAM 2006 COLON CANCER SCREENING 2016 SHINGLES VACCINE (1 of 2) 2016 INFLUENZA (#1) 2025 PNEUMOCOCCAL VACCINE FOR HIGH RISK PATIENTS (#1) 10/27 Care Teams Branch Controller Relationship Specialty Start Date End Date Community, Pcp PCP - General Internal Medicine 12/30/18
== END 2025-01-27 16:47 | disposition home or self-care (01) ==
LOC: HO.HGI 15:38
PROVIDERS: PCP Nurse Practitioner Family; Visit Provider Nurse Practitioner Family
DX: Z01.818 Encounter for other preprocedural examination (principal); Z12.11 Encounter for screening for malignant neoplasm of colon; L29.0 Pruritus ani
CPT/HCPCS: S0285

== ENCOUNTER 2025-03-04 07:34 | Day surgery (SDC) | payer BC, SELFPAY ==
--- NOTE | 2025-03-02 10:15 | P.CONAN_ITS ---
Documented by User: Gogo Chilel NP 03/02/25 10:15 HPI - Anesthesia Eval Consult details Narrative: 59 yr old female for colonoscopy PMFSH Active Problems Active Problems: All Active Problems Perianal irritation (Acute) Joint pain (Acute) Screening for colon cancer (Acute) Upper respiratory infection (Acute) Menopause (Acute) Dermatitis (Acute) Lumbar degenerative disc disease (Acute) Anxiety as acute reaction to exceptional stress (Acute) Lower back pain (Acute) Abnormal mammogram (Acute) RUQ abdominal pain (Acute) Physical exam (Acute) Hyperlipidemia (Acute) Post-menopause (Acute) Screening for hypothyroidism (Acute) Past Medical History Medical History Perianal irritation Skin cancer Lumbar degenerative disc disease Post-menopause Hyperlipidemia Abnormal mammogram Bursitis Right hip pain Tubular adenoma Menopause Dyslipidemia Palpitations Family History Family History Father Disease of colon Mother Afib HTN (hypertension) Brother No problems noted. Son No problems noted. Son No problems noted. Maternal Grandfather Stomach cancer Stroke Paternal Grandmother Stroke Ovarian cancer Paternal Uncle CVD (cardiovascular disease) Surgical History Surgical History Hx of tonsillectomy History of laparoscopy Social History Social History Housing: House Alcohol intake: current Alcohol intake frequency: holidays/special occasions only Patient Tobacco Use Status: Never used Tobacco e-Cigarette/Vaping Use: Never Used Second Hand Smoke Exposure: No Use of substances other than those prescribed or required for medical reasons: No Advance Directives: No Advance Directives Information Provided: Yes service: No Current occupational status: employed Cognitive needs: No Hearing needs: No Vision needs: No Meds Allergies Allergy/AdvReac Type Severity Reaction Status Date / Time No Known Allergies Allergy Verified 01/27/25 15:43 Documented by User: Ramiro Barajas MD 03/04/25 07:56 [facility] Past Medical History Medical History Perianal irritation Skin cancer Lumbar degenerative disc disease Post-menopause Hyperlipidemia Abnormal mammogram Bursitis Right hip pain Tubular adenoma Menopause Dyslipidemia Palpitations Family History Family History Father Disease of colon Mother Afib HTN (hypertension) Brother No problems noted. Son No problems noted. Son No problems noted. Maternal Grandfather Stomach cancer Stroke Paternal Grandmother Stroke Ovarian cancer Paternal Uncle CVD (cardiovascular disease) Family history of problems with anesthesia: No Surgical History Surgical History Hx of tonsillectomy History of laparoscopy History of Problems with Anesthesia: No Social History Social History Housing: House Alcohol intake: current Alcohol intake frequency: holidays/special occasions only Patient Tobacco Use Status: Never used Tobacco e-Cigarette/Vaping Use: Never Used Second Hand Smoke Exposure: No Use of substances other than those prescribed or required for medical reasons: No Advance Directives: No Advance Directives Information Provided: Yes service: No Current occupational status: employed Cognitive needs: No Hearing needs: No Vision needs: No Meds Allergies Allergy/AdvReac Type Severity Reaction Status Date / Time No Known Allergies Allergy Verified 01/27/25 15:43 Exam Exam Date and Time: 03/04/2025 Airway Mallampati Class: I TM Dist: >3cm Neck ROM: Full Loose/Missing/Broken Teeth: No Heart: rrr Lungs: ctab vesicular Assessment and Plan Assessment Anesthesia Assessment: Anesthesia Plan Discussed and Chart Reviewed Final Anesthetic Review Family History of Problems with Anesthesia: No History of Problems with Anesthesia: No NPO: Yes ASA Class: II Final Preanesthetic Review: No Changes in Pt Med Stat, Meds/Allgs Chart Reviewed, Consent Obtained/Reviewed and Anes Risks/Benef Reviewed Patient Risk: Low Procedure Risk: Low Anesthetic Plan Anesthetic Plan: MAC: Disposition: Standard PACU
[2025-03-03 07:21] VITALS: BMI 25.5
[2025-03-04] VITALS (8 sets, daily range): BP systolic 86–127; BP diastolic 49–81; PULSE 58–93; RESP 12–21; TEMP 36.6; O2SAT 94–99
--- NOTE | 2025-03-04 07:53 | MHC.SHP ---
Pre-Procedural Eval Section A - 24 Hr Update-Section A only Date of Service: 03/04/25 Section B - Complete if H&P > 30 days Chief Complaint: screening Details of Present Illness: father with CRC Relevant Family History (Specify if Yes): Yes Relevant Social History: None Present Medications: see Short Stay Collaborative assessment Medical History: Significant History (Perianal irritation Skin cancer Lumbar degenerative disc disease Post-menopause Hyperlipidemia Abnormal mammogram Bursitis Right hip pain Tubular adenoma Menopause Dyslipidemia Palpitations) History of Previous Operations: Relevant previous surgery/procedure and date(s) (Hx of tonsillectomy History of laparoscopy) Allergies: Allergies Allergy/AdvReac Type Severity Reaction Status Date / Time No Known Allergies Allergy Verified 01/27/25 15:43 Review of Systems Sugical H&P ROS: Negative: Constitution, Cardiovascular, Respiratory, Neurological, Psychiatric, Hem-Onc, Allergic/Immunologic, Gastrointestinal, Genitourinary, Musculoskeletal, Integumentary, Endocrine and Eyes/Ears/Nose/Throat Exam Surgical H&P Exam: Normal: HEENT, Normal: Heart, Normal: Lungs, Normal: Extremities, Normal: Abdomen, Normal: Skin and Normal: Neurological Plan Diagnosis/Plan: Unchanged I have reviewed the history and physical and performed a pertinent physical examination on my patient. No changes have occurred unless specified. Time Spent With Patient Time: Total time managing care of this patient today ____ minutes.
[2025-03-04] MEDS: Lactated Ringers 1,000 ML 100 ML IVCONT (08:03)
--- NOTE | 2025-03-04 09:07 | HO.OPN-COLON ---
Colonoscopy Operative Note Operative Note Date of Service: 03/04/25 Narrative: Operative Information Procedure Description: Colonoscopy Indication: screening Anesthesia: MAC COLONOSCOPY Instrument: Olympus variable stiffness pediatric scope 190L Colonoscopy Monitoring: Vital signs and clinical assessment, continuous EKG monitoring, Pulse oximetry, Carbon Dioxide monitoring and blood pressure monitoring were done throughout the procedure. Colon withdrawal time was 10 minutes. Procedure: The patient was placed in the left lateral decubitis position and pre-procedure medications were administered. After a digital rectal examination of the ano-rectum, the video colonoscope was inserted into the rectum and advanced through the colon to the cecum/TI. The colonoscope was slowly withdrawn in a retrograde panoramic fashion and the colon mucosa was carefully examined including a retroflexed view of the rectum. Findings and interventions are described below. Procedure Difficulty: easy Findings: Terminal Ileum-normal, bx taken Cecum: increased vascularity and granularity of mucosa, bx taken Ascending Colon: proximal area with increased vascularity and granularity of mucosa, bx taken Transverse Colon -normal Descending Colon:normal Sigmoid Colon: moderate severe diverticulosis Rectum: Retroflexion with small internal hemorrhoids seen, grade I Anorectum - normal Intervention: cold forceps Colon preparation: [place] Bowel Preparation Scale Right colon; 2 Transverse colon: 2 Left colon; 2 (0 = Unprepared colon segment with mucosa not seen due to solid stool that cannot be cleared. 1 = Portion of mucosa of the colon segment seen, but other areas of the colon segment not well seen due to staining, residual stool and/or opaque liquid. 2 = Minor amount of residual staining, small fragments of stool and/or opaque liquid, but mucosa of colon segment seen well. 3 = Entire mucosa of colon segment seen well with no residual staining, small fragments of stool or opaque liquid) Impression and Post Procedure Diagnosis: diverticulosis internal hemorrhoids Plan: High fiber diet leaflet Avoid straining at stool, epsom salts and sitz bath, anusol supps or cream Repeat Colonoscopy in 5 years due to FH of CRC in father or earlier if clinically indicated Above findings were reviewed with the patient and relevant handouts were provided if indicated.
== END 2025-03-04 10:36 | disposition home or self-care (01) ==
PROVIDERS: PCP Nurse Practitioner Family; Visit Provider Internal Medicine Gastroenterology
PROC: 0DJD8ZZ Inspection of Lower Intestinal Tract, Via Natural or Artificial Opening Endoscopic (ICD-10-PCS; CPT 45378; principal; 2025-03-04 09:10)
DX: Z12.11 Encounter for screening for malignant neoplasm of colon (principal); Z86.0101 Personal history of adenomatous and serrated colon polyps; K64.0 First degree hemorrhoids; K57.30 Diverticulosis of large intestine without perforation or abscess without bleeding; K52.9 Noninfective gastroenteritis and colitis, unspecified
CPT/HCPCS: 45380; 88305; J2003; J2405; J2704

== ENCOUNTER → 2025-03-04 07:34 | Outpatient (BNV) | payer BC, SELFPAY | PROVIDERS: PCP Nurse Practitioner Family; Visit Provider Internal Medicine Gastroenterology | DX: Z12.11 Encounter for screening for malignant neoplasm of colon (principal); K57.90 Diverticulosis of intestine, part unspecified, without perforation or abscess without bleeding; K64.0 First degree hemorrhoids | CPT/HCPCS: 45380 ==

== ENCOUNTER 2025-03-18 13:45 | Outpatient (AMB) | payer BC, SELFPAY ==
--- NOTE | 2025-03-18 13:46 | A.OFFVIS_ITS ---
Intake Visit Reasons: S/P [place]; Dr. Bruno Intake Note: Patient telehealth post op follow up for Colonoscopy results. Patient denies any GI issues. Erp Project Manager Required: No Allergies No Known Allergies Allergy (Verified 03/18/25 13:46) Medication List - Last Reconciled 03/18/25 by Guerda Blankenship CNP cholecalciferol (vitamin D3) 25 mcg PO DAILY mecobalamin (vitamin B12) 1,000 mcg PO DAILY multivitamin 1 tab PO QAM ubidecarenone-omega 3-vit E 25-150-200 mg-mg-unit (Co W-22-Fdpfrax E-Fish Oil) 1 cap PO DAILY HPI HPI S/P [place]; Dr. Bruno: Details: Patient is a 59-year-old female with PMH of dyslipidemia. F/U post screening colonoscopy 03-04-25 for review of findings: localized active colitis in cecum, diverticulosis, internal hemorrhoids; FHx colon CA (father). Since last consult, pt reports no abdominal pain, diarrhea, hematochezia, N/V, or wt changes. Pt not using any Rx or OTC meds besides vitamins/supplements, nor NSAIDs/estrogen products. Continues vitamin regimen (MVI, fish oil w/CoQ10, vit D, B12, turmeric; intermittent zinc). No flares, urgent care, or hospitalizations. No new GI or systemic symptoms. Minimal perianal irritation persists, described as mild, managed w/ topical Rx from security public safety officer. Reports stress WNL; no sign of acute triggers. [facility] Medical History (Updated 03/18/25 @ 14:18 by Guerda Blankenship CNP) Diverticulosis Colitis Perianal irritation Skin cancer Lumbar degenerative disc disease Post-menopause Hyperlipidemia Abnormal mammogram Bursitis Right hip pain Tubular adenoma Menopause Dyslipidemia Palpitations Surgical History Hx of colonoscopy Hx of tonsillectomy History of laparoscopy Family History Father Disease of colon Mother Afib HTN (hypertension) Brother No problems noted. Son No problems noted. Son No problems noted. Maternal Grandfather Stomach cancer Stroke Paternal Grandmother Stroke Ovarian cancer Paternal Uncle CVD (cardiovascular disease) Social History Housing: House Alcohol intake: current Alcohol intake frequency: holidays/special occasions only Patient Tobacco Use Status: Never used Tobacco e-Cigarette/Vaping Use: Never Used Second Hand Smoke Exposure: No service: No Current occupational status: employed Cognitive needs: No Hearing needs: No Vision needs: No Physical Exam Const Orientation/consciousness: patient oriented x3 Resp Other: Insert telehealth Effort & Inspection: normal respiratory effort, able to speak in complete sentences and tracheal deviation Neuro General: patient oriented x3 Gait exam (Neuro): Normal gait present Psych Appearance: grossly normal Mental Status: mental status grossly normal Speech and movement: Normal speech and movement present Affect: normal affect Attitude: cooperative Thought process: Normal thought process present Thought content: Normal thought content present Insight: Good insight present (Psych) Judgement: Good judgement present (Psych) Telehealth Telehealth Telehealth Platform: Telephone Location of provider rendering services: practice address Location of patient: address on file Patient Identification confirmed using: Name, : Yes Telehealth method: voice only Patient verbally consented to treatment: Yes Patient verbally consented to billing insurance company: Yes Patient informed of any privacy concerns related to visit: Yes Results Reviewed Results Reviewed: Operative Note Date of Service: 03/04/25 Narrative: Operative Information Procedure Description: Colonoscopy Indication: screening Anesthesia: MAC COLONOSCOPY Instrument: Olympus variable stiffness pediatric scope 190L Colonoscopy Monitoring: Vital signs and clinical assessment, continuous EKG monitoring, Pulse oximetry, Carbon Dioxide monitoring and blood pressure monitoring were done throughout the procedure. Colon withdrawal time was 10 minutes. Procedure: The patient was placed in the left lateral decubitis position and pre-procedure medications were administered. After a digital rectal examination of the ano-rectum, the video colonoscope was inserted into the rectum and advanced through the colon to the cecum/TI. The colonoscope was slowly withdrawn in a retrograde panoramic fashion and the colon mucosa was carefully examined including a retroflexed view of the rectum. Findings and interventions are described below. Procedure Difficulty: easy Findings: Terminal Ileum-normal, bx taken Cecum: increased vascularity and granularity of mucosa, bx taken Ascending Colon: proximal area with increased vascularity and granularity of mucosa, bx taken Transverse Colon -normal Descending Colon:normal Sigmoid Colon: moderate severe diverticulosis Rectum: Retroflexion with small internal hemorrhoids seen, grade I Anorectum - normal Intervention: cold forceps Colon preparation: [place] Bowel Preparation Scale Right colon; 2 Transverse colon: 2 Left colon; 2 (0 = Unprepared colon segment with mucosa not seen due to solid stool that cannot be cleared. 1 = Portion of mucosa of the colon segment seen, but other areas of the colon segment not well seen due to staining, residual stool and/or opaque liquid. 2 = Minor amount of residual staining, small fragments of stool and/or opaque liquid, but mucosa of colon segment seen well. 3 = Entire mucosa of colon segment seen well with no residual staining, small fragments of stool or opaque liquid) Impression and Post Procedure Diagnosis: diverticulosis internal hemorrhoids Plan: High fiber diet leaflet Avoid straining at stool, epsom salts and sitz bath, anusol supps or cream Repeat Colonoscopy in 5 years due to FH of CRC in father or earlier if clinically indicated PATHOLOGY Collected: 03/04/25 Location: .[facility] Received: 03/04/25 Diagnosis A. Terminal ileum, biopsy: Ileal mucosa within normal limits; negative for active or chronic ileitis. B. Colon, cecum and ascending, biopsy: Focal active colitis (nonspecific). Clinical History Pre-Op Dx: Screening Post-Op Dx: Diverticulosis, hemorrhoids Assessment & Plan Assessment & Plan (1) Colitis: Comment: 03/04/25 colonoscopy complete without prep-nonspecific focal active colitis (cecum), diverticulosis (sigmoid), internal hemorrhoids. Recommendations for repeat in 5 years due to family history. Code(s): K52.9 - Noninfective gastroenteritis and colitis, unspecified Category: Medical Plan: Asymptomatic, stable. Incidental endoscopic finding, no clinical sequelae. - No supporting hx for infectious, inflammatory, drug-induced, or ischemic etiology. - No GI sx; conservative mgmt appropriate. Additional testing: - Baseline CBC, inflammatory markers (e.g., CRP), stool studies as noninvasive screen for underlying activity. Medications: - No initiation of mesalamine or other agents at this time. - Rationale: Sx-free, test results pending. Lifestyle Recommendations: - Maintain well-balanced, high-fiber diet, hydration. - Avoid NSAIDs unless medically necessary. - Handout: healthy gut microbiome, constipation prevention (provided verbally). Follow-Up Plan: - Review labs/stool results via portal; escalate for sx or abnormal results. - Instructed to report any new GI sx (diarrhea, blood, wt loss, pain) promptly. - Clinic F/U scheduled in 3 mo for reassessment and review of test results or sooner PRN for new/worsening sx. (2) Perianal irritation: Code(s): L29.0 - Pruritus ani Category: Medical Plan: Mild, persistent, responsive to topical steroid. -Employee Benefits Director f/u in place; current regimen effective. Additional testing: - None from GI at this time. Medications: - Continue topical steroid as prescribed by security public safety officer (clobetasol oint). Lifestyle Recommendations: - As directed by security public safety officer. Referrals / Coordination of Care: - Maintain security public safety officer collaboration. Follow-Up Plan: - Employee Benefits Director to reassess in Feb or PRN. (3) Diverticulosis: Code(s): K57.90 - Diverticulosis of intestine, part unspecified, without perforation or abscess without bleeding Category: Medical Plan: Stable, asymptomatic. - No acute diverticulitis. - No GI bleeding or complications. Additional testing: - None indicated. Medications: - None. Lifestyle Recommendations: - High-fiber diet, adequate H2O intake, minimize constipation. - Avoid low-fiber/processed foods. Referrals / Coordination of Care: - None needed. Follow-Up Plan: - Routine monitoring. Plan Follow-up in 3 months or sooner as needed Time: I spent a total of 30 minutes on the date of encounter which includes: Preparing to see the patient (reviewed previous documentation, test results and medical history) Performing a medically appropriate exam and/or evaluation Ordering medications, tests, and procedures Documenting clinical information in the health record Orders: Orders Calprotectin, Fecal Today K52.9 - Noninfective gastroenteritis and colitis, unspecified C Reactive Protein Today K52.9 - Noninfective gastroenteritis and colitis, unspecified Patient Instructions: Patient scheduled for telehealth visit. Acknowledges and consents to: -Understanding purpose/nature of telehealth -Aware of limitations vs. in-person exams -Privacy/confidentiality maintained per HIPAA -May stop visit anytime or request in-person care Coding Level of Care Code Established Pt Tele Est Pt Level 3 (54275) Patient Type Established Diagnoses Colitis K52.9 Perianal irritation L29.0 Diverticulosis K57.90
== END 2025-03-18 14:27 | disposition home or self-care (01) ==
LOC: HO.HGI 13:45
PROVIDERS: PCP Nurse Practitioner Family; Visit Provider Nurse Practitioner Family
DX: K52.9 Noninfective gastroenteritis and colitis, unspecified (principal); L29.0 Pruritus ani; K57.90 Diverticulosis of intestine, part unspecified, without perforation or abscess without bleeding
CPT/HCPCS: 98966